=== PATIENT | female | born 1975 | race Caucasian/White ===

== ENCOUNTER 2019-02-11 09:13 | Day surgery (SDC) | payer BC ==
[~2019-02-11] VITALS: Ht 157.5 cm; Wt 44.1 kg
[2019-02-11 09:32] VITALS: BP 107/73; PULSE 57; TEMP 97.4
[2019-02-11 12:18] VITALS: BP 113/82; PULSE 60; TEMP 97.3
--- NOTE | 2019-02-11 12:18 | NUR ---
Patient brought back to [facility], alert and oriented. Vital signs stable. Report recieved from OR staff. King bandage in place to right foot. Foot warm and pink in color. Denies any pain or nausea. Requesting juice at this time, tolerating well. Danna James at bedside. Call julien within reach, will continue to monitor.
[2019-02-11 12:33] VITALS: BP 100/64; PULSE 65
[2019-02-11 12:48] VITALS: BP 95/59; PULSE 64
--- NOTE | 2019-02-11 12:50 | NUR ---
Discharge instructions reviewed with patient and boyfriend Jacob. Verbalized understanding. IV removed per MD orders, tolerated well. Patient to get dressed at this time.
--- NOTE | 2019-02-11 13:00 | NUR ---
Patient ambulated down to lobby with this RN. To be driven home by Jacob.
--- NOTE | 2019-02-11 13:42 | NUR ---
Surgeon in room reviewing discharge instructions with patient. Verbalized understanding. Tolerating drink well. States she is ready to go home.
== END 2019-02-11 13:00 | disposition home or self-care (01) ==
LOC: SDCO 09:13
DX: M20.41 Other hammer toe(s) (acquired), right foot (principal)
CPT/HCPCS: J0690; J2250; J2704; J3010; J7120